=== PATIENT | male | born 1955 | race Caucasian/White ===

== ENCOUNTER → 2021-01-11 | Outpatient (CLI) | payer BC ==
[~2021-01-11] MED LIST: COREG PO; MECLIZINE HCL25 M1 PO
== END ==
LOC: SJCVCIMAG 07:21
PROVIDERS: ATTEND Internal Medicine
DX: I08.8 Other rheumatic multiple valve diseases (principal); I42.9 Cardiomyopathy, unspecified

== ENCOUNTER → 2021-04-25 | Outpatient (CLI) | payer BC | LOC: SJCVCIMAG 09:41 | PROVIDERS: ATTEND Internal Medicine | DX: I05.9 Rheumatic mitral valve disease, unspecified (principal); I42.9 Cardiomyopathy, unspecified; I10 Essential (primary) hypertension ==